=== PATIENT | female | born 1970 | race Caucasian/White ===

== ENCOUNTER 2016-12-11 07:41 | Emergency (ER) | payer OTHER ==
[2015-10-10 08:45] VITALS: BP 126/78
[~2016-12-11] VITALS: Ht 172.7 cm; Wt 111.1 kg
[~2016-12-11 07:41] MED LIST: CYAN10002 IJ; PREN1TAB58 PO; amoxicillin PO
--- NOTE | 2016-12-11 08:04 | EKG ---
[address] [address] Test Date: 2016-12-11 Test Time: 08:02:22 Pat Name: SYBIL CHACON Department: Room: Gender: F [employer]: : 1970 Requested By: SHELBY RAMIREZ Order Number: [id number] Reading MD: Khurram Navarro Measurements Intervals Duncan Rate: 81 P: 0 AR: 144 QRS: 18 QRSD: 82 T: 18 QT: 372 QTc: 438 Interpretive Statements SINUS RHYTHM NON SPECIFIC T ABNORMALITY RI6.01 Unconfirmed report No previous ECG available for comparison Electronically Signed On 12-12-2016 11:04:02 CDT by Khurram Navarro
[2016-12-11] MEDS ORDERED: KETOROLAC 30 MG/ML VIAL. IV ONE (08:15)
[2016-12-11] MEDS ORDERED: ASPIRIN 81 MG TAB.CHEW PO ONE (08:15)
[2016-12-11] MEDS ORDERED: IV NORMAL SALINE 1,000ML 1,000 ML IV SCH (08:15)
[2016-12-11] MEDS ORDERED: 0.9 % SODIUM CHLORIDE 10 ML DISP.SYRIN. IV PRN (08:15)
--- NOTE | 2016-12-11 08:15 | RAD ---
EXAM: Chest 2 views. HISTORY: Cough, right chest pain. COMPARISON: None. FINDINGS: Frontal and lateral views of the chest are obtained. Linear opacities in the left base are consistent with atelectasis or scarring. There are no confluent infiltrates. There is no pneumothorax or pleural effusion. The heart is not enlarged. Surgical clips are seen within the right upper quadrant and along the left chest wall. IMPRESSION: 1. No confluent infiltrates.
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
[2016-12-11 08:46] LABS: BASO # 0.1 x10^3/uL (0.0-0.2); BASO % 2 % (0-3); EOS # 0.1 x10^3/uL (0.0-0.7); EOS % 1 % (0-3); HEMATOCRIT 42.8 % (36.0-47.0); HEMOGLOBIN 14.5 g/dL (12.0-15.5); LYMPH # 1.9 x10^3/uL (1.0-4.8); LYMPH % 41 % (24-48); MEAN CORPUSCULAR HEMOGLOBIN 33 pg (25-35); MEAN CORPUSCULAR HGB CONC 34 g/dL (31-37); MEAN CORPUSCULAR VOLUME 96 fL (79-100); MONO # 0.3 x10^3/uL (0.0-1.1); MONO % 6 % (0-9); NEUT # 2.3 x10^3uL (1.8-7.7); NEUT % 50 % (31-73); PLATELET COUNT 225 x10^3/uL (140-400); RED BLOOD COUNT 4.44 x10^6/uL (3.50-5.40); WHITE BLOOD COUNT 4.7 x10^3/uL (4.0-11.0)
[2016-12-11 08:55] LABS: ALBUMIN 3.9 g/dL (3.4-5.0); CALCIUM 8.6 mg/dL (8.5-10.1); CREATININE 0.8 mg/dL (0.6-1.0); GFR 77.2; MAGNESIUM 1.9 mg/dL (1.8-2.4); TOTAL BILIRUBIN 0.3 mg/dL (0.2-1.0)
[2016-12-11] MEDS ORDERED: fentaNYL PF 100 MCG/2 ML VIAL IV ONE ×2 (09:15→11:00)
[2016-12-11] MEDS ORDERED: CONTRAST GIVEN MC PRN (10:00)
[2016-12-11] MEDS ORDERED: IOHEXOL 300 MG/ML 75 ML VIAL. IV ONE (10:00)
--- NOTE | 2016-12-11 10:52 | RAD ---
EXAM: CT ANGIOGRAPHY OF THE CHEST WITH AND WITHOUT INTRAVENOUS CONTRAST. HISTORY: Shortness of breath, cough, right chest pain. History of breast cancer. TECHNIQUE: Computed tomographic angiography of the chest was performed before and after the intravenous administration of 75 mL Omnipaque 300. 3-D maximum intensity projections were also performed. COMPARISON: None. FINDINGS: Images of the upper abdomen reveal calcified granulomas in the liver and spleen. Changes of gastric bypass procedure are noted. Bone windows reveal no suspicious lesions. No pulmonary emboli are identified. There is no aortic dissection or aneurysm. There are changes of bilateral breast reconstruction. Coarse calcifications on the left are consistent with benign fat and encroaches. There are no pathologically enlarged mediastinal or axillary lymph nodes.. Calcified mediastinal lymph nodes are likely secondary to old granulomatous disease. There is no pleural or pericardial effusion. The heart is not enlarged. There is mild septal line thickening and groundglass opacity in both lung bases. This is consistent with atelectasis and mild pulmonary edema. Calcified granulomas are noted. IMPRESSION: 1. Correlate for mild pulmonary edema. 2. No pulmonary embolism. *One or more of the following individualized dose reduction techniques were utilized for this examination: 1. Automated exposure control. 2. Adjustment of the mA and/or kV according to patient size. 3. Use of iterative reconstruction technique.
[2016-12-11] MEDS ORDERED: NAPR275T59 PO (11:12)
[2016-12-11] MEDS ORDERED: OXYC-323 PO (11:12)
[2016-12-11] MEDS ORDERED: DIAZ5TAB PO (11:12)
== END 2016-12-11 11:34 | disposition home or self-care (01) ==
LOC: ER 07:41
DX: R07.89 Other chest pain (principal); Z98.84 Bariatric surgery status; Z88.5 Allergy status to narcotic agent
CPT/HCPCS: 36415; 71020; 71275; 80053; 83690; 83735; 83880; 84484; 85027; 85379; 93005; 96361; 96374; 96375; 96376; 99285; J1885; J3010; Q9967; J7030

== ENCOUNTER 2017-01-22 10:09 | Emergency (ER) | payer OTHER ==
[~2017-01-22 10:09] MED LIST changes: +DIAZ5TAB PO; +NAPR275T59 PO; +OXYC-323 PO
[2017-01-22 10:20] VITALS: BP 139/89
[2017-01-22] MEDS ORDERED: LIDOCAINE 2%/EPI 1:100,000 20 ML VIAL. IJ ONE (10:45)
--- NOTE | 2017-01-22 11:14 | PHYS DOC ---
General Chief Complaint: UPPER EXTREMITY PAIN Stated Complaint: RIGHT ARM PAIN Time Seen by MD: 10:16 Source: patient Exam Limitations: no limitations Problems: History of Present Illness Initial Comments Patient is a 46-year-old female who comes to the ED complaining of right elbow pain. Patient states that she's had pain for the past month. She states her symptoms have been progressively worsening, she denies any inciting factors no strenuous or repetitive motions no trauma. She was seen at [facility] diagnosed with tennis elbow and prescribed nonsteroidal anti-inflammatory medications and a tennis elbow brace. She states she tried to brace which made her symptoms worse, she has not tried any anti-inflammatory medications as she was certainly would not help either. She denies numbness tingling weakness or radiating symptoms, symptoms are worse with extension and supination improved with rest and elbow flexion/wrist pronation Onset: other Severity: severe Pain/Injury Location: right elbow Method of Injury: unknown Modifying Factors: worse with jarring, worse with movement, improves with rest Allergies: Coded Allergies: morphine (Verified Allergy, Unknown, 10/10/15) Past Medical History Medical History: no pertinent history Surgical History: noncontributory, other Social History Smoker: non-smoker Alcohol: none Drugs: none Review of Systems Constitutional: denies chills, denies fever Respiratory: denies cough, denies shortness of breath Cardiovascular: denies chest pain, denies palpitations Gastrointestinal: denies nausea, denies vomiting Genitourinary: denies frequency, denies hematuria Musculoskeletal: see HPI Psychiatric/Neurological: see HPI Physical Exam General Appearance: WD/WN, no apparent distress Neck: non-tender, supple Cardiovascular/Respiratory: normal peripheral pulses, no respiratory distress Back: no CVA tenderness, no vertebral tenderness Elbow/Forearm: limited ROM, pain, soft tissue tenderness (no bony point tenderness or deformity. There is hypertonicity of the brachial radialis with exquisite tenderness to palpation reproducing patient's chief complaint. No palpable deformity of the extremity is neurovascularly intact.) Neurologic/Tendon: normal sensation, normal motor functions, normal tendon functions, responds to pain, no evidence tendon injury Psychiatric: alert, oriented x 3 Skin: normal color, warm/dry Orders, Labs, Meds I discussed therapy and anti-inflammatory medications at length with the patient. She is not satisfied with these options as she feels they will be ineffective. I advised the patient that if she would like a recheck to see if there was a trigger point to inject and try to get her some relief. She is agreeable. Procedure: Right upper extremity trigger point injection Informed consent obtained, risks and benefits discussed with the patient. Risks include leading starting infection and . Trigger point isolated which reproduced patient's chief complaint and radiating symptoms. 0.1 mL of 2% lidocaine with epinephrine injected with immediate relief of the patient's symptoms. Almost immediately she has near full range of motion and expresses gratitude. I discussed resting the extremity with a sling and close PCP follow-up patient is agreeable. Departure Time of Disposition: 11:12 Disposition: 01 HOME, SELF-CARE Diagnosis: strain right upper extremity Condition: IMPROVED Patient Instructions: Muscle Strain, [id number] Additional Instructions: Wear the sling as needed for symptom control. Heating pad to affected area 15 minutes 4-6 times daily followed by gentle stretching. Continue current medications. Follow-up with your doctor this week for recheck. Return to the ED with new or changing symptoms. HUSSEIN GOODMAN DO Jan 22, 2017 11:14
== END 2017-01-22 11:39 | disposition home or self-care (01) ==
LOC: ER 10:09
DX: S66.811A Strain of other specified muscles, fascia and tendons at wrist and hand level, right hand, initial encounter (principal); Z88.5 Allergy status to narcotic agent; X58.XXXA Exposure to other specified factors, initial encounter; Y93.89 Activity, other specified; Y99.8 Other external cause status; Y92.89 Other specified places as the place of occurrence of the external cause
CPT/HCPCS: 20552; 99284-25